=== PATIENT | female | born 1980 | race Caucasian/White ===

== ENCOUNTER 2016-05-07 12:35 | Emergency (ER) | payer OTHER ==
[2016-05-07 14:09] VITALS: BP 122/76
--- NOTE | 2016-05-07 14:20 | UC ---
Skin Complaint HPI - HPI Summary HPI Summary: skin lesion x 5 days on right chin started as small blisters , getting bigger, no drainage, + tenderness - History of Current Complaint Chief Complaint: UCSkin Time Seen by Provider: 05/07/16 14:14 Stated Complaint: SKIN CONCERN Hx Obtained From: Patient Hx Last Menstrual Period: Early Apr 2016 ?: No Onset/Duration: Gradual Onset, Lasting Days - 5, Still Present Timing: Constant Onset Severity: Mild Current Severity: Moderate Location: Discrete - righ chin area Character: Swelling, Pain, Redness Aggravating: Touch Alleviating: Nothing Associated Signs & Symptoms: Positive: Tenderness - Allergy/Home Medications Allergies/Adverse Reactions: Allergies Allergy/AdvReac Type Severity Reaction Status Date / Time No Known Allergies Allergy Verified 05/07/16 14:09 Review of Systems Constitutional: Negative Eyes: Negative ENT: Negative Respiratory: Negative Cardiovascular: Negative All Other Systems Reviewed And Are Negative: Yes PMH/Surg Hx/FS Hx/Imm Hx Respiratory History Of: Reports: Asthma - Surgical History Surgical History: Yes Surgery Procedure, Year, and Place: c section and tubal lig 2006. cholecystectomy 2008 - Family History Known Family History: Positive: Respiratory Disease - postive FMh of asthma - Social History Alcohol Use: Rare Substance Use Type: None Smoking Status (MU): Heavy Every Day Tobacco Smoker Type: Cigarettes Amount Used/How Often: 3/4 ppd Length of Time of Smoking/Using Tobacco: 16 yrs Have You Smoked in the Last Year: Yes Physical Exam Triage Information Reviewed: Yes Appearance: Well-Appearing, No Pain Distress, Well-Nourished Vital Signs: Initial Vital Signs Temp 98.2 F 05/07/16 14:02 Pulse 85 05/07/16 14:02 Resp 18 05/07/16 14:02 BP 122/76 05/07/16 14:02 Pulse Ox 100 05/07/16 14:02 Vital Signs Reviewed: Yes ENT: Positive: Normal ENT inspection, Hearing grossly normal, Pharynx normal Neck exam: Normal Neck: Positive: Supple, Nontender, No Lymphadenopathy Respiratory: Positive: Chest non-tender, Lungs clear, Normal breath sounds Cardiovascular: Positive: RRR, No Murmur, Pulses Normal Skin: Positive: Other - nodular lesion right side for chin , + tenderenss, no discharge Course/Dx - Diagnoses Provider Diagnoses: impetigo Discharge - Discharge Plan Condition: Stable Disposition: HOME Prescriptions: Mupirocin Calcium (Topical) [Bactroban] 2 % EX TID #30 gm Patient Education Materials: Impetigo (ED) Referrals: Yaneli Haider MD [Primary Care Provider] - 7 Days
== END 2016-05-07 14:25 | disposition home or self-care (01) ==
LOC: UCCORT 12:35
DX: L01.00 Impetigo, unspecified (principal); F17.210 Nicotine dependence, cigarettes, uncomplicated
CPT/HCPCS: 99212; G0463

== ENCOUNTER 2016-06-13 12:29 | Emergency (ER) | payer OTHER ==
[2016-06-13 12:58] VITALS: BP 109/81
--- NOTE | 2016-06-13 13:10 | UC ---
Throat Pain/Nasal Anselmo HPI - HPI Summary HPI Summary: complaint of nausea vomiting and diarrhea that started 1:00 AM this morning felt feverish and had chills she started having muscle and body aches in entire body nasal congestion denies cough , blood in stool, dysuria able to drink fluids since approx 6 AM today not taking any medication for symptoms - History of Current Complaint Chief Complaint: UCGI Stated Complaint: VOMITING,DIARRHEA Time Seen by Provider: 06/13/16 13:03 Hx Obtained From: Patient Hx Last Menstrual Period: 05/21/16 - Allergies/Home Medications Allergies/Adverse Reactions: Allergies Allergy/AdvReac Type Severity Reaction Status Date / Time No Known Allergies Allergy Verified 05/07/16 14:09 PMH/Surg Hx/FS Hx/Imm Hx Previously Healthy: Yes Respiratory History Of: Reports: Asthma - Surgical History Surgical History: Yes Surgery Procedure, Year, and Place: c section and tubal lig 2006. cholecystectomy 2008 - Family History Known Family History: Positive: Respiratory Disease - postive FMh of asthma Negative: Cardiac Disease, Hypertension, Diabetes - Social History Occupation: Employed Full-time Lives: With Family Alcohol Use: Rare Substance Use Type: None Smoking Status (MU): Heavy Every Day Tobacco Smoker Type: Cigarettes Amount Used/How Often: 3/4 ppd Length of Time of Smoking/Using Tobacco: 16 yrs Have You Smoked in the Last Year: Yes Cessation Counseling: Patient Advised to Stop Review of Systems Constitutional: Fever, Chills, Fatigue Skin: Negative Eyes: Negative ENT: Negative Respiratory: Negative Cardiovascular: Negative Gastrointestinal: Vomiting, Diarrhea Genitourinary: Negative Motor: Negative Neurovascular: Negative Musculoskeletal: Myalgia Neurological: Negative Psychological: Negative All Other Systems Reviewed And Are Negative: Yes Physical Exam Triage Information Reviewed: Yes Appearance: No Pain Distress, Well-Nourished Vital Signs: Initial Vital Signs Temp 98.2 F 06/13/16 12:52 Pulse 94 06/13/16 12:52 Resp 16 06/13/16 12:52 BP 109/81 06/13/16 12:52 Pulse Ox 100 06/13/16 12:52 Vital Signs Reviewed: Yes Eyes: Positive: Conjunctiva Clear ENT: Positive: Pharynx normal, TMs normal. Negative: Nasal congestion Neck: Positive: No Lymphadenopathy Respiratory: Positive: Lungs clear, Normal breath sounds, No respiratory distress Cardiovascular: Positive: RRR, No Murmur, Pulses Normal Abdomen Description: Positive: Nontender, No Organomegaly, Soft. Negative: CVA Tenderness (R), CVA Tenderness (L), Distended, Guarding Bowel Sounds: Positive: Hyperactive Musculoskeletal: Positive: No Edema Neurological: Positive: Alert Psychological Exam: Normal Skin Exam: Normal Throat Pain/Nasal Course/Dx - Course Course Of Treatment: exam completed. pt refuses testing for influenza- viral gastroenteritis. will treat for nausea so she can increase fluids. reviewed s/ s of when to seek emergent care - Differential Dx/Diagnosis Differential Diagnosis/HQI/PQRI: Influenza, Other - gastroenteritis Provider Diagnoses: gastroenteritis Discharge - Discharge Plan Condition: Stable Disposition: HOME Prescriptions: Ondansetron ODT TAB* [Zofran Odt TAB*] 4 mg PO Q8H PRN #10 tab.odt PRN Reason: Nausea Patient Education Materials: Gastroenteritis (ED) Forms: *Work Release Referrals: Yaneli Haider MD [Primary Care Provider] - Additional Instructions: GASTROENTERITIS What is Gastroenteritis? Gastroenteritis is an inflammation of the stomach and bowel that is often called the stomach "flu.'' It should only last 1 or 2 days. You usually get gastroenteritis because you've been in contact with someone who's already infected or because you've eaten contaminated food, or drank contaminated water. Many different viruses can cause intestinal problems but the signs and symptoms are usually the same: watery diarrhea, abdominal cramps, and nausea or vomiting. Symptoms Might Include: Abdominal cramps Diarrhea Nausea Vomiting Blood or mucus in stools Muscle aches Headaches Fever Extreme exhaustion Treatment Recommendations: Decrease activity until you feel better or the diarrhea and vomiting are gone. Take clear liquids, such as luke kendall, cola, water, tea, broth, and gelatin, for the first 24 hours or until the diarrhea and vomiting stops. During the next 24 hours you may eat bland foods like cooked cereals, rice, soup, bread, crackers, baked potatoes, eggs, or applesauce. Do not eat fruits, vegetables, fried or spicy foods, bran, candy, dairy products (such as milk or ice cream), apple juice, or alcoholic beverages. You may go back to your normal diet after 2 to 3 days. Drink 8 to 12 glasses of liquid a day. Most of the problems with gastroenteritis are caused by loss of water through vomiting and diarrhea. You may take ibuprofen (Motrin, Advil) or acetaminophen (Tylenol) for fever and muscle aches. Call Your Doctor or Return Here IF: Your symptoms last for more than 3 days. You have severe pain in the abdomen (area around the stomach) or rectum. You have a high temperature. You find blood, mucus, or worms in your stool. You have signs of dehydration (water loss), including dry mouth, excessive thirst, crinkled skin, little or no urination, dizziness, or light-headedness. You have any other new symptoms that worry you.
== END 2016-06-13 14:00 | disposition home or self-care (01) ==
LOC: UCCORT 12:29
DX: K52.9 Noninfective gastroenteritis and colitis, unspecified (principal); F17.210 Nicotine dependence, cigarettes, uncomplicated
CPT/HCPCS: 99212; G0463